=== PATIENT | female | born 1975 | race Caucasian/White ===

== ENCOUNTER 2019-03-04 08:45 | Inpatient (IN) | payer OTHER ==
[2019-03-04] MEDS ORDERED: ONDANSETRON 4 MG INJ IV (10:30)
[2019-03-04] MEDS ORDERED: ACETAMINOPHEN 325 MG TAB PO (10:30)
[2019-03-04] MEDS: FAMOTIDINE 20 MG TAB PO ×2 (10:30→19:59)
[2019-03-04] MEDS: DOCUSATE SODIUM 100 MG CAP PO ×2 (10:30→19:58)
[2019-03-04] MEDS: DEXTROSE 5%-0.45% NACL 1,000 ML IV ×3 (11:04→22:05)
[2019-03-04] MEDS: morphine 2 MG INJ IV (15:49)
[2019-03-04 20:34] LABS: HEPATITIS B SURFACE ANTIGEN NEGATIVE (NEGATIVE)
[2019-03-04 20:52] LABS: HEPATITIS B CORE ANTIBODY NEGATIVE (NEGATIVE); HEPATITIS C VIRAL ANTIBODY NEGATIVE (NEGATIVE)
[2019-03-05 05:09] LABS: ADD MAN DIFF? NO
[2019-03-05 05:10] LABS: BASOPHILS % 0.6 % (0.0-2.0); EOSINOPHILS # 0.2 10^3/ul (0.0-0.5); EOSINOPHILS % 2.3 % (0.0-7.0); HEMATOCRIT 36.1 % (37.0-47.0); HEMOGLOBIN 11.9 g/dl (12.0-16.0); LYMPHOCYTES # 2.3 10^3/ul (0.8-2.9); LYMPHOCYTES % 34.2 % (15.0-51.0); MEAN CORPUSCULAR HEMOGLOBIN 30.2 pg (29.0-33.0); MEAN CORPUSCULAR VOLUME 91.6 fl (82.0-101.0); MEAN PLATELET VOLUME 9.5 fl (7.4-10.4); MONOCYTE # 0.6 10^3/ul (0.3-0.9); MONOCYTES % 9.1 % (0.0-11.0); NEUTROPHIL # 3.5 10^3/ul (1.6-7.5); NEUTROPHILS % 53.5 % (39.0-77.0); PLATELET COUNT 265 10^3/UL (140-415); RED BLOOD COUNT 3.94 10^6/ul (4.20-5.40); RED CELL DISTRIBUTION WIDTH 14.2 % (11.5-14.5)
[2019-03-05 05:10] LABS: WHITE BLOOD COUNT 6.6 10^3/ul (4.8-10.8)
[2019-03-05 05:39] LABS: ALANINE AMINOTRANSFERASE 206 IU/L (13-69); ALBUMIN 3.4 g/dl (3.3-4.9); ALKALINE PHOSPHATASE 118 IU/L (42-121); ASPARTATE AMINO TRANSFERASE 83 IU/L (15-46); BILIRUBIN,INDIRECT 0.7 mg/dl (0-1.1); BILIRUBIN,TOTAL 0.7 mg/dl (0.2-1.3); TOTAL PROTEIN 6.1 g/dl (6.1-8.1)
[2019-03-05 05:40] LABS: ANION GAP 6 (5-13); BLOOD UREA NITROGEN 5 mg/dl (7-20); CALCIUM 8.8 mg/dl (8.4-10.2); CARBON DIOXIDE 28 mmol/L (21-31); CHLORIDE 105 mmol/L (97-110); CREATININE 0.73 mg/dl (0.44-1.00); Estimated GFR > 60 mL/min (>60); GLUCOSE 82 mg/dl (70-220); POTASSIUM 3.7 mmol/L (3.5-5.1); SODIUM 139 mmol/L (135-144)
[2019-03-05] MEDS: HYDROCODONE/APAP (5/325) TAB PO (07:42)
[2019-03-05] MEDS: morphine 2 MG INJ IV (07:52)
[2019-03-05] MEDS: FAMOTIDINE 20 MG TAB PO ×2 (08:34→21:56)
[2019-03-05] MEDS: DOCUSATE SODIUM 100 MG CAP PO ×2 (08:34→21:56)
[2019-03-05] MEDS: PIPER-TAZO 3.375 GM IV (PMX) 100 ML IVPB ×2 (13:06→21:56)
[2019-03-05] MEDS ORDERED: IOHEXOL 300MG/ML 30 ML BTL (13:58)
[2019-03-05] MEDS ORDERED: PROPOFOL 20 ML (14:11)
[2019-03-05] MEDS ORDERED: LIDOCAINE 2% (SDV) 5 ML INJ (14:12)
[2019-03-05] MEDS ORDERED: ROCURONIUM 50 MG INJ (14:12)
[2019-03-05] MEDS: INDOMETHACIN 50 MG SUPP PR (14:38)
[2019-03-05] MEDS ORDERED: DEXAMETHASONE 4 MG/ML 5 ML INJ (14:42)
[2019-03-05] MEDS ORDERED: ONDANSETRON 4 MG INJ (14:42)
[2019-03-05] MEDS ORDERED: GLYCOPYRROLATE 0.4 MG INJ (15:27)
[2019-03-05] MEDS ORDERED: NEOSTIGMINE 3 MG/3 ML SYRINGE (15:27)
[2019-03-05] MEDS ORDERED: METOCLOPRAMIDE 10 MG INJ IV (15:30)
[2019-03-05] MEDS ORDERED: ONDANSETRON 4 MG INJ IV (15:30)
[2019-03-05] MEDS ORDERED: KETOROLAC 30 MG INJ IV (15:30)
[2019-03-05] MEDS ORDERED: HYDROmorphONE 1 MG/5 ML IV SYRINGE IV ×3 (15:30)
[2019-03-05] MEDS ORDERED: DIPHENHYDRAMINE 50 MG INJ IV (15:30)
[2019-03-05] MEDS ORDERED: MIDAZOLAM 1 MG/ML 2 ML INJ IV (15:30)
[2019-03-05] MEDS ORDERED: MEPERIDINE 25 MG INJ IV (15:30)
[2019-03-05] MEDS ORDERED: FENTAnyl 50 MCG/ML VIAL IV ×3 (15:30)
[2019-03-05] MEDS ORDERED: ALBUTEROL 0.083% (NEB) 2.5 MG/3 ML AMP HHN (15:30)
[2019-03-05] MEDS ORDERED: EPHEDrine 25 MG/5 ML SYG IV (15:30)
[2019-03-05] MEDS ORDERED: hydrALAzine 20 MG INJ IV (15:30)
[2019-03-05] MEDS ORDERED: LABETALOL HCL 20MG INJ IV (15:30)
[2019-03-06] MEDS: DEXTROSE 5%-0.45% NACL 1,000 ML IV ×4 (00:25→22:14)
[2019-03-06] MEDS: PIPER-TAZO 3.375 GM IV (PMX) 100 ML IVPB ×3 (05:43→22:14)
[2019-03-06] MEDS: FAMOTIDINE 20 MG TAB PO ×2 (09:00→21:00)
[2019-03-06] MEDS: DOCUSATE SODIUM 100 MG CAP PO ×2 (09:00→21:00)
[2019-03-06] MEDS ORDERED: BUPIVACAINE 0.5%/EPI (SDV) 30 ML INJ (18:05)
[2019-03-06] MEDS ORDERED: LIDOCAINE 1% (MPF) 30 ML INJ (18:05)
[2019-03-06] MEDS ORDERED: BUPIVACAINE 0.25%/EPI (SDV) 30 ML INJ (18:11)
[2019-03-06] MEDS ORDERED: IBUPROFEN 600 MG TAB PO (19:00)
[2019-03-06] MEDS ORDERED: ACETAMINOPHEN 325 MG TAB PO (19:00)
[2019-03-06] MEDS ORDERED: HYDROCODONE/APAP (5/325) TAB PO (19:00)
[2019-03-06] MEDS ORDERED: METOCLOPRAMIDE 10 MG INJ IV (19:30)
[2019-03-06] MEDS ORDERED: HYDROmorphONE 1 MG/5 ML IV SYRINGE IV (19:30)
[2019-03-06] MEDS: HYDROmorphONE 1 MG/5 ML IV SYRINGE IV ×2 (20:15→20:19)
[2019-03-06] MEDS: ONDANSETRON 4 MG INJ IV (20:16)
[2019-03-06] MEDS: MEPERIDINE 25 MG INJ IV (20:46)
[2019-03-06] MEDS: DIPHENHYDRAMINE 50 MG INJ IV (20:46)
[2019-03-06] MEDS: morphine 2 MG INJ IV (22:15)
[2019-03-07] MEDS: morphine 2 MG INJ IV ×2 (02:03→06:50)
[2019-03-07 05:33] LABS: ADD MAN DIFF? NO
[2019-03-07 05:41] LABS: WHITE BLOOD COUNT 10.3 10^3/ul (4.8-10.8)
[2019-03-07 05:41] LABS: BASOPHILS % 0.3 % (0.0-2.0); EOSINOPHILS # 0.1 10^3/ul (0.0-0.5); EOSINOPHILS % 0.6 % (0.0-7.0); HEMATOCRIT 35.6 % (37.0-47.0); HEMOGLOBIN 11.9 g/dl (12.0-16.0); LYMPHOCYTES # 2.5 10^3/ul (0.8-2.9); LYMPHOCYTES % 23.8 % (15.0-51.0); MEAN CORPUSCULAR HEMOGLOBIN 30.4 pg (29.0-33.0); MEAN CORPUSCULAR HGB CONC 33.4 g/dl (32.0-37.0); MEAN PLATELET VOLUME 9.9 fl (7.4-10.4); MONOCYTE # 0.6 10^3/ul (0.3-0.9); MONOCYTES % 6.2 % (0.0-11.0); NEUTROPHIL # 7.1 10^3/ul (1.6-7.5); NEUTROPHILS % 68.8 % (39.0-77.0); PLATELET COUNT 277 10^3/UL (140-415); RED BLOOD COUNT 3.91 10^6/ul (4.20-5.40); RED CELL DISTRIBUTION WIDTH 14.4 % (11.5-14.5)
[2019-03-07] MEDS: PIPER-TAZO 3.375 GM IV (PMX) 100 ML IVPB ×3 (05:44→22:07)
[2019-03-07 06:32] LABS: ALANINE AMINOTRANSFERASE 134 IU/L (13-69); ALBUMIN 3.2 g/dl (3.3-4.9); ALBUMIN/GLOBULIN RATIO 1.14; ALKALINE PHOSPHATASE 91 IU/L (42-121); ANION GAP 6 (5-13); ASPARTATE AMINO TRANSFERASE 72 IU/L (15-46); BILIRUBIN,INDIRECT 0.6 mg/dl (0-1.1); BILIRUBIN,TOTAL 0.6 mg/dl (0.2-1.3); BLOOD UREA NITROGEN 7 mg/dl (7-20); CALCIUM 8.4 mg/dl (8.4-10.2); CARBON DIOXIDE 29 mmol/L (21-31); CHLORIDE 102 mmol/L (97-110); CREATININE 0.75 mg/dl (0.44-1.00); Estimated GFR > 60 mL/min (>60); GLUCOSE 104 mg/dl (70-220); POTASSIUM 3.4 mmol/L (3.5-5.1); SODIUM 137 mmol/L (135-144)
[2019-03-07] MEDS: FAMOTIDINE 20 MG TAB PO ×2 (09:46→22:07)
[2019-03-07] MEDS: DOCUSATE SODIUM 100 MG CAP PO ×2 (09:46→22:07)
[2019-03-07] MEDS: DEXTROSE 5%-0.45% NACL 1,000 ML IV (09:47)
[2019-03-07] MEDS: POTASSIUM CHLORIDE (SR) 20 MEQ TAB PO (13:46)
[2019-03-08 05:20] LABS: ADD MAN DIFF? NO
[2019-03-08 05:40] LABS: BASOPHILS % 0.5 % (0.0-2.0); EOSINOPHILS # 0.2 10^3/ul (0.0-0.5); EOSINOPHILS % 2.1 % (0.0-7.0); HEMOGLOBIN 12.1 g/dl (12.0-16.0); LYMPHOCYTES # 2.2 10^3/ul (0.8-2.9); LYMPHOCYTES % 28.3 % (15.0-51.0); MEAN CORPUSCULAR HEMOGLOBIN 30.6 pg (29.0-33.0); MEAN CORPUSCULAR HGB CONC 33.6 g/dl (32.0-37.0); MEAN CORPUSCULAR VOLUME 90.9 fl (82.0-101.0); MEAN PLATELET VOLUME 9.7 fl (7.4-10.4); MONOCYTE # 0.6 10^3/ul (0.3-0.9); MONOCYTES % 7.4 % (0.0-11.0); NEUTROPHIL # 4.7 10^3/ul (1.6-7.5); NEUTROPHILS % 61.6 % (39.0-77.0); PLATELET COUNT 273 10^3/UL (140-415); RED BLOOD COUNT 3.96 10^6/ul (4.20-5.40); RED CELL DISTRIBUTION WIDTH 14.5 % (11.5-14.5)
[2019-03-08 05:40] LABS: WHITE BLOOD COUNT 7.7 10^3/ul (4.8-10.8)
[2019-03-08 06:05] LABS: ALANINE AMINOTRANSFERASE 113 IU/L (13-69); ALBUMIN 3.4 g/dl (3.3-4.9); ALBUMIN/GLOBULIN RATIO 1.17; ALKALINE PHOSPHATASE 91 IU/L (42-121); ANION GAP 6 (5-13); ASPARTATE AMINO TRANSFERASE 57 IU/L (15-46); BILIRUBIN,INDIRECT 0.7 mg/dl (0-1.1); BILIRUBIN,TOTAL 0.7 mg/dl (0.2-1.3); BLOOD UREA NITROGEN 5 mg/dl (7-20); CALCIUM 8.9 mg/dl (8.4-10.2); CARBON DIOXIDE 29 mmol/L (21-31); CHLORIDE 104 mmol/L (97-110); CREATININE 0.75 mg/dl (0.44-1.00); Estimated GFR > 60 mL/min (>60); GLUCOSE 98 mg/dl (70-220); POTASSIUM 3.5 mmol/L (3.5-5.1); SODIUM 139 mmol/L (135-144); TOTAL PROTEIN 6.3 g/dl (6.1-8.1)
[2019-03-08] MEDS: PIPER-TAZO 3.375 GM IV (PMX) 100 ML IVPB ×3 (06:10→21:25)
[2019-03-08] MEDS: FAMOTIDINE 20 MG TAB PO ×2 (09:08→20:12)
[2019-03-08] MEDS: DOCUSATE SODIUM 100 MG CAP PO ×2 (09:08→20:12)
[2019-03-09] MEDS: PIPER-TAZO 3.375 GM IV (PMX) 100 ML IVPB ×3 (05:57→21:23)
[2019-03-09 06:01] LABS: ADD MAN DIFF? NO
[2019-03-09 06:08] LABS: BASOPHIL # 0.1 10^3/ul (0.0-0.1); BASOPHILS % 0.7 % (0.0-2.0); EOSINOPHILS # 0.3 10^3/ul (0.0-0.5); EOSINOPHILS % 3.6 % (0.0-7.0); HEMATOCRIT 36.5 % (37.0-47.0); HEMOGLOBIN 11.8 g/dl (12.0-16.0); LYMPHOCYTES # 2.5 10^3/ul (0.8-2.9); LYMPHOCYTES % 35.3 % (15.0-51.0); MEAN CORPUSCULAR HEMOGLOBIN 29.8 pg (29.0-33.0); MEAN CORPUSCULAR HGB CONC 32.3 g/dl (32.0-37.0); MEAN CORPUSCULAR VOLUME 92.2 fl (82.0-101.0); MEAN PLATELET VOLUME 9.9 fl (7.4-10.4); MONOCYTE # 0.6 10^3/ul (0.3-0.9); MONOCYTES % 8.1 % (0.0-11.0); NEUTROPHIL # 3.7 10^3/ul (1.6-7.5); PLATELET COUNT 280 10^3/UL (140-415); RED BLOOD COUNT 3.96 10^6/ul (4.20-5.40); RED CELL DISTRIBUTION WIDTH 14.5 % (11.5-14.5)
[2019-03-09 06:08] LABS: WHITE BLOOD COUNT 7.2 10^3/ul (4.8-10.8)
[2019-03-09 06:42] LABS: ALANINE AMINOTRANSFERASE 97 IU/L (13-69); ALBUMIN 3.6 g/dl (3.3-4.9); ALBUMIN/GLOBULIN RATIO 1.16; ALKALINE PHOSPHATASE 84 IU/L (42-121); ANION GAP 7 (5-13); ASPARTATE AMINO TRANSFERASE 48 IU/L (15-46); BILIRUBIN,INDIRECT 0.6 mg/dl (0-1.1); BILIRUBIN,TOTAL 0.6 mg/dl (0.2-1.3); BLOOD UREA NITROGEN 6 mg/dl (7-20); CALCIUM 9.3 mg/dl (8.4-10.2); CARBON DIOXIDE 28 mmol/L (21-31); CHLORIDE 104 mmol/L (97-110); CREATININE 0.76 mg/dl (0.44-1.00); Estimated GFR > 60 mL/min (>60); GLUCOSE 93 mg/dl (70-220); POTASSIUM 3.5 mmol/L (3.5-5.1); SODIUM 139 mmol/L (135-144); TOTAL PROTEIN 6.7 g/dl (6.1-8.1)
[2019-03-09] MEDS: DOCUSATE SODIUM 100 MG CAP PO ×2 (09:08→21:22)
[2019-03-09] MEDS: FAMOTIDINE 20 MG TAB PO ×2 (09:08→21:23)
[2019-03-09] MEDS: BISACODYL (EC) 5 MG TAB PO (11:38)
[2019-03-09] MEDS: BENZONATATE 100 MG CAP PO (14:43)
[2019-03-09] MEDS: CEPASTAT LOZENGE MT (21:22)
[2019-03-10 05:03] LABS: ADD MAN DIFF? NO
[2019-03-10 05:11] LABS: BASOPHILS % 0.5 % (0.0-2.0); EOSINOPHILS # 0.2 10^3/ul (0.0-0.5); HEMATOCRIT 36.1 % (37.0-47.0); HEMOGLOBIN 11.9 g/dl (12.0-16.0); LYMPHOCYTES # 1.4 10^3/ul (0.8-2.9); LYMPHOCYTES % 18.9 % (15.0-51.0); MEAN CORPUSCULAR HEMOGLOBIN 30.4 pg (29.0-33.0); MEAN CORPUSCULAR VOLUME 92.3 fl (82.0-101.0); MEAN PLATELET VOLUME 9.6 fl (7.4-10.4); MONOCYTE # 0.6 10^3/ul (0.3-0.9); NEUTROPHILS % 69.1 % (39.0-77.0); PLATELET COUNT 290 10^3/UL (140-415); RED BLOOD COUNT 3.91 10^6/ul (4.20-5.40); RED CELL DISTRIBUTION WIDTH 14.4 % (11.5-14.5)
[2019-03-10 05:11] LABS: WHITE BLOOD COUNT 7.3 10^3/ul (4.8-10.8)
[2019-03-10 05:44] LABS: ALANINE AMINOTRANSFERASE 76 IU/L (13-69); ALBUMIN 3.8 g/dl (3.3-4.9); ALBUMIN/GLOBULIN RATIO 1.26; ALKALINE PHOSPHATASE 82 IU/L (42-121); ANION GAP 7 (5-13); ASPARTATE AMINO TRANSFERASE 31 IU/L (15-46); BILIRUBIN,INDIRECT 0.5 mg/dl (0-1.1); BILIRUBIN,TOTAL 0.5 mg/dl (0.2-1.3); BLOOD UREA NITROGEN 10 mg/dl (7-20); CALCIUM 9.1 mg/dl (8.4-10.2); CARBON DIOXIDE 27 mmol/L (21-31); CHLORIDE 105 mmol/L (97-110); CREATININE 0.85 mg/dl (0.44-1.00); Estimated GFR > 60 mL/min (>60); GLUCOSE 111 mg/dl (70-220); POTASSIUM 3.2 mmol/L (3.5-5.1); SODIUM 139 mmol/L (135-144); TOTAL PROTEIN 6.8 g/dl (6.1-8.1)
[2019-03-10] MEDS: PIPER-TAZO 3.375 GM IV (PMX) 100 ML IVPB (05:53)
[2019-03-10] MEDS: FAMOTIDINE 20 MG TAB PO (08:04)
[2019-03-10] MEDS: DOCUSATE SODIUM 100 MG CAP PO (08:04)
[2019-03-10] MEDS: POTASSIUM CHLORIDE (SR) 20 MEQ TAB PO (10:08)
== END 2019-03-10 18:10 | disposition home or self-care (01) | DRG 419 ==
LOC: MS1 08:45
PROVIDERS: Internal Medicine
PROC: 0FT44ZZ Resection of Gallbladder, Percutaneous Endoscopic Approach (ICD-10-PCS; principal; 2019-03-05 14:07)
PROC: 0FB04ZX Excision of Liver, Percutaneous Endoscopic Approach, Diagnostic (ICD-10-PCS; 2019-03-05 14:07)
PROC: 0FC98ZZ Extirpation of Matter from Common Bile Duct, Via Natural or Artificial Opening Endoscopic (ICD-10-PCS; 2019-03-05 14:07)
DX: K80.70 Calculus of gallbladder and bile duct without cholecystitis without obstruction (principal); K76.89 Other specified diseases of liver; D64.9 Anemia, unspecified; Z68.26 Body mass index [BMI] 26.0-26.9, adult; E66.3 Overweight; K59.00 Constipation, unspecified; K83.8 Other specified diseases of biliary tract; R74.0 Nonspecific elevation of levels of transaminase and lactic acid dehydrogenase [LDH]; E87.6 Hypokalemia
CPT/HCPCS: 74181; 74330; 80048; 80053; 80076; 84703; 85025; 86704; 86709; 86803; 87340; 88304; 88307; 88313